=== PATIENT | female | born 1945 | race Caucasian/White ===

== ENCOUNTER → 2023-11-20 09:20 | Outpatient (REF) | payer MEDICARE, SELFPAY ==
[2023-11-20 13:01] LABS: % Basophils 0.9 % (0-2); % Eosinophils 2.3 % (0-6); % Immature Granulocytes 0.3 % (0-0.5); % Lymphocytes 25.8 % (20.5-51.1); % Monocytes 10.6 % (1.7-9.3); % Neutrophils 60.1 % (42.2-75.2); Absolute Basophils 0.1 10^3/uL (0-0.2); Absolute Eosinophils 0.2 10^3/uL (0-0.7); Absolute Lymphocytes 1.7 10^3/uL (1.2-3.4); Absolute Monocytes 0.7 10^3/uL (0.1-0.6); Absolute Neutrophils 3.9 10^3/uL (1.4-6.5); Hematocrit 40.8 % (37.0-47.0); Hemoglobin 14.1 g/dL (12.0-16.0); Mean Corp Hgb Conc. 34.6 g/dL (33.0-37.0); Mean Corpuscular Hgb 35.4 pg (27.0-31.0); Mean Corpuscular Volume 102.5 fL (81.0-99.0); Mean Platelet Volume 10.2 fL (7.4-10.4); Nucleated Red Blood Cells % 0 %; Platelet Count 235 10^3/uL (130-400); Red Blood Cell Count 3.98 10^6/uL (4.20-5.40); Red Cell Dist. Width 12.7 % (11.5-14.5); White Blood Cell Count 6.5 10^3/uL (4.8-10.8)
[2023-11-20 14:02] LABS: ALT (SGPT) 24 U/L (0-35); AST (SGOT) 37 U/L (14-36); Albumin 4.2 g/dl (3.5-5.0); Alkaline Phosphatase 71 U/L (38-126); Blood Urea Nitrogen 12 mg/dl (7-17); Calcium 9.1 mg/dl (8.4-10.2); Carbon Dioxide 27 mmol/L (22-30); Chloride 103 mmol/L (98-107); Glucose 121 mg/dl (70-99); HDL Cholesterol 94 mg/dl; LDL Cholesterol, Calculated 103 mg/dl; Potassium 4.3 mmol/L (3.5-5.1); Sodium 135 mmol/L (135-145); Total Bilirubin 0.7 mg/dl (0.2-1.3); Total Cholesterol 215 mg/dl (50-199); Total Protein 7.4 g/dl (6.3-8.2); Triglyceride 91 mg/dl (10-149); Very Low Density Lipoprotein 18 mg/dl (0-30); eGFR > 60.00
[2023-11-21 15:40] LABS: Folate 12.8 ng/ml (2.76-20); Vitamin B12 409 pg/ml (239-931)
[2023-11-22 09:26] LABS: Glycohemoglobin (HgbA1c) 5.7 % (4.0-5.6)
== END ==
LOC: HWLAB 09:20
PROVIDERS: ATTENDING PHYSICIAN Family Medicine
DX: M19.90 Unspecified osteoarthritis, unspecified site (principal); G47.9 Sleep disorder, unspecified; E78.00 Pure hypercholesterolemia, unspecified; I10 Essential (primary) hypertension; J84.9 Interstitial pulmonary disease, unspecified; F41.8 Other specified anxiety disorders; K21.9 Gastro-esophageal reflux disease without esophagitis; R73.01 Impaired fasting glucose; D53.9 Nutritional anemia, unspecified
CPT/HCPCS: 36415; 73130; 80053; 80061; 82607; 82746; 83036; 85025

== ENCOUNTER → 2023-11-28 11:35 | Outpatient (REF) | payer MEDICARE, SELFPAY ==
[2023-11-28 15:16] LABS: C-Reactive Protein < 5.00 mg/L (0.0-10.00)
[2023-11-28 16:02] LABS: Erythrocyte Sed Rate 14 mm/hour (0-20)
[2023-11-28 16:20] LABS: Folate 11.9 ng/ml (2.76-20); Vitamin B12 404 pg/ml (239-931)
[2023-11-30 15:52] LABS: Rheumatoid Agglutinin Less Than 10 IU (<10 IU)
[2023-11-30 18:41] LABS: ANA, IgG Reflex to HEp-2 None Detected (None Detected)
== END ==
LOC: HWLAB 11:35
PROVIDERS: ATTENDING PHYSICIAN Family Medicine
DX: M19.90 Unspecified osteoarthritis, unspecified site (principal); M19.049 Primary osteoarthritis, unspecified hand; D53.9 Nutritional anemia, unspecified
CPT/HCPCS: 36415; 82607; 82746; 85652; 86038; 86140; 86430

== ENCOUNTER 2023-12-26 11:51 | Emergency (ER) | payer MEDICARE, SELFPAY ==
[2023-12-26 11:53] VITALS: BP 133/83
--- NOTE | 2023-12-26 12:26 | ED.GENMED ---
History of Present Illness
General
Chief Complaint: Heart Rate Problem
Source: patient
Exam Limitations: none
Time Seen by Provider: 12/26/23 12:17
Travel History
Have you had any contact with someone who has COVID-19?: No
Do you have any symptoms of coronavirus? Fever > 100 degrees, chills, cough, shortness of breath, sore throat, loss of taste or smell, muscle aches, or headache?: No
History of Present Illness
History of Present Illness:
See MDM
Past History
Past History
ED Past Medical History: HTN, Hypercholesterolemia and Other (Interstitial Lung Disease)
Social History
Tobacco: Former smoker
Drug: None
Personal:
Living: with family
Phy Exam
Physical Exam
Physical Exam:
See MDM
Course
Orders/Labs/Results
Orders:
Orders
12/26/23 11:56
Electrocardiogram (*1) Urgent
Reason for Study: Chest Pain
EKG- Treatment ONCE
12/26/23 12:25
0.9% Sodium Chloride 1000 ml [Nss] 1,000 ml IV BOLUS
Diltiazem HCl [Cardizem] 20 mg IV NOW STA
12/26/23 12:29
Complete Blood Count/With Diff Urgent
Comprehensive Metabolic Panel Urgent
Magnesium Urgent
PTT Urgent
Prothrombin Time Urgent
TSH Reflex To Free T4 Urgent
Troponin I Urgent
12/26/23 13:08
EKG [Electrocardiogram (*1)] Urgent
Reason for Study: Palpitations
EKG- Treatment ONCE
12/26/23 13:56
Apixaban [Eliquis] 5 mg PO ONCE ONE
Metoprolol Xl [Toprol Xl] 25 mg PO NOW STA
Abnormal Lab Results
12/26/23
12:29
RBC 4.17 L 10^6/uL
(4.20-5.40)
MCV 99.8 H fL
(81.0-99.0)
MCH 35.5 H pg
(27.0-31.0)
Absolute Monos (auto) 0.9 H 10^3/uL
(0.1-0.6)
Monocytes % 11.4 H %
(1.7-9.3)
Sodium 134 L mmol/L
(135-145)
Glucose 110 H mg/dl
(70-99)
Troponin I 0.050 H* ng/ml
12/26/23 12:29
12/26/23 12:29
Vital Signs
Initial and Last Documented VS:
Initial Vital Signs
Temp Pulse Resp BP Pulse Ox
98.3 F 147 22 133/83 96
12/26/23 11:53 12/26/23 11:53 12/26/23 11:53 12/26/23 11:53 12/26/23 11:53
Last Documented Vital Signs
Temp Pulse Resp BP Pulse Ox
98.3 F 75 22 161/81 95
12/26/23 11:53 12/26/23 14:10 12/26/23 11:53 12/26/23 14:10 12/26/23 12:58
MDM/Problems Addressed
Differential Diagnosis Includes:
HPI and MDM Narrative:
78-year-old female presenting with several days of chest discomfort and palpitations. Patient states it kept her up overnight. She saw her PCP today and had an EKG showing A-fib with RVR. This is a new diagnosis for her. Given her elevated heart
rate and her current symptoms, she was sent in for evaluation. A-fib with RVR was confirmed. Patient denies prior history of cardiac disease. She states she has never seen a grinder chipper before. Will give dose of IV Cardizem and attempt to
chemically cardiovert. She is not a bedside electric cardioversion candidate given duration of symptoms without being on a blood thinner.
She denies recent trips or any leg swelling
Physical exam
General: Well appearing and non-toxic
HEENT: protecting airway
Neck: appears supple
CV: No evidence of cyanosis. Tachycardic and irregular
Resp: No accessory muscle use. Lungs clear
Abd: Non-distended
Extremities: No deformities. No leg edema
Neuro: alert
Psych: Normal affect
Skin: Intact
Problems Addressed including Acute and Chronic Conditions affecting care:
1. A-fib with RVR
Acuity: acute
Prognosis: unstable
Details: Patient given IV Cardizem and attempt to chemically cardiovert. Will give IV fluids and obtain basic blood
Updates
After 1 dose of IV Cardizem bolus, patient is rate related sinus rhythm now. All symptoms have resolved. She denies chest pain or shortness of breath. I did curbside cardiology. Will start Toprol XL and Eliquis. Patient was found to have an
elevated troponin. I do believe this to be rate related. Given that she has no chest pain or shortness of breath currently, doubt ACS
Differential Diagnosis (but not limited to): A-fib with RVR, hypothyroidism, ACS
Testing considered: D-dimer
Drug therapy (if applicable): OTC meds, please see d/c instruction regarding Rx drugs
Amount and/or Complexity of Data Reviewed
Clinical info obtained from: Patient
External data reviewed: N/A
Labs I independently reviewed (but not limited to): Mild elevation of troponin
Radiology: N/A
Pulse Ox: not hypoxic
EKG independently reviewed: A-fib with RVR, normal axis, no STEMI
Academic Physician: A-fib with RVR
Critical Care: The high probability of a clinically significant, sudden or life threatening deterioration of the cardiovascular system(s) required my full and direct attention, intervention and personal management. The aggregate critical care time
was 33 minutes. This time is in addition to time spent performing reported procedures but includes the following:
[x] Data Review and interpretation
[x] Patient assessment and monitoring of vital signs
[x] Documentation
[x] Medication orders and management
Risk of Complication:
Social Determinants of health: Good social support
Discussed with other providers: Cardiology
Escalation of Care includes Admit/Obs: After being observed in the Emergency Department, pt stable for discharge.
Occasional wrong word or 'sound a like' substitutions may have occurred due to the inherent limitations of voice recognition software. Read the chart carefully and recognize, using context, where substitutions have occurred.
*Critical Care Note
Total Time (30-74mins, 75-104mins- exclusive of procedures): 33 min
ED Attending Note
-
Portions of this chart may have been created with voice recognition software.� Occasional wrong word or��sound alike� substitutions may have occurred due to the inherent limitations of voice recognition software.
Discharge Plan
Departure
Patient Disposition: Home (Routine Discharge)
Date of Disposition: 12/26/23
Time of Disposition: 14:23
Patient with high blood pressure during this ER visit?: Yes
Discharge Problem:
New onset a-fib
Instructions: Atrial Fibrillation (DC), BLOOD PRESSURE
Prescriptions:
New
metoprolol succinate [Toprol XL] 25 mg tablet extended release 24 hr
25 mg PO DAILY Qty: 30 0RF
Eliquis 5 mg tablet
5 mg PO BID Qty: 60 0RF
No Action
atorvastatin [Lipitor] 40 mg Tablet
40 mg PO HS
loperamide 2 mg Tablet
2 mg PO Q4HPRN PRN (Reason: diarrhea)
Theragen Tablet
1 tab PO DAILY
omeprazole 40 mg Capsule,Delayed Release(Dr/Ec)
40 mg PO DAILY
mycophenolate mofetil 500 mg tablet
500 mg PO BID
lorazepam 0.5 mg Tablet
0.5 mg PO DAILYPRN PRN (Reason: anxiety)
losartan 25 mg Tablet
25 mg PO DAILY
hydrochlorothiazide 25 mg Tablet
25 mg PO DAILY
Tylenol PM Extra Strength 25-500 mg Tablet
1 tab PO HSPRN PRN (Reason: sleep)
escitalopram oxalate [Lexapro] 20 mg Tablet
20 mg PO DAILY
Referrals:
Yvon Saenz MD [Active] -
Trey Martinez MD [Family Provider] -
Activity Restrictions/Additional Instructions:
Please return for any worsening symptoms.
You may return at any time if you have further concerns.
Please follow up with your doctor at the first available appointment, preferably this week.
You were placed on the cardiac callback tracker. Someone from their office should call you in the next few days. If you do not hear from them in the next few days, please give them a call.
Thank you for choosing [facility].
Interventions
Interventions:
*Risk Screen - Suicide Last Done: 12/26/23 11:53
*General Assessment Last Done: 12/26/23 11:53
*Neglect/Abuse Screening Last Done: 12/26/23 11:53
ED- Fall Risk Assessment Last Done: 12/26/23 12:58
*ED COVID-19 Vaccine History Last Done: 12/26/23 12:58
*Nursing Disposition Last Done: 12/26/23 13:55
ED- Cardiac Assessment Last Done: 12/26/23 12:58
ED- Pulmonary Assessment Last Done: 12/26/23 12:58
Discharge Date and Time
Print Language: ZAMBIAN
[2023-12-26] MEDS: NSS 1000 IV (12:31)
[2023-12-26] MEDS: CARDIZEM 20 MG IV (12:32)
[2023-12-26 12:48] LABS: % Basophils 0.8 % (0-2); % Eosinophils 0.8 % (0-6); % Immature Granulocytes 0.2 % (0-0.5); % Monocytes 11.4 % (1.7-9.3); % Neutrophils 62.8 % (42.2-75.2); Absolute Basophils 0.1 10^3/uL (0-0.2); Absolute Eosinophils 0.1 10^3/uL (0-0.7); Absolute Monocytes 0.9 10^3/uL (0.1-0.6); Absolute Neutrophils 5.2 10^3/uL (1.4-6.5); Hematocrit 41.6 % (37.0-47.0); Hemoglobin 14.8 g/dL (12.0-16.0); Mean Corp Hgb Conc. 35.6 g/dL (33.0-37.0); Mean Corpuscular Hgb 35.5 pg (27.0-31.0); Mean Corpuscular Volume 99.8 fL (81.0-99.0); Mean Platelet Volume 9.8 fL (7.4-10.4); Nucleated Red Blood Cells % 0 %; Platelet Count 254 10^3/uL (130-400); Red Blood Cell Count 4.17 10^6/uL (4.20-5.40); Red Cell Dist. Width 12.8 % (11.5-14.5); White Blood Cell Count 8.3 10^3/uL (4.8-10.8)
[2023-12-26 12:58] LABS: APTT 28.9 Sec (23.4-35.0); INR 1.07; PT 13.7 Sec (11.4-14.6)
[2023-12-26 13:34] LABS: TSH Reflex To Free T4 3.09 uIU/ml (0.47-4.68)
[2023-12-26 13:40] LABS: ALT (SGPT) 23 U/L (0-35); AST (SGOT) 34 U/L (14-36); Albumin 4.3 g/dl (3.5-5.0); Alkaline Phosphatase 80 U/L (38-126); Blood Urea Nitrogen 16 mg/dl (7-17); Calcium 9.6 mg/dl (8.4-10.2); Carbon Dioxide 23 mmol/L (22-30); Chloride 104 mmol/L (98-107); Glucose 110 mg/dl (70-99); Magnesium 1.6 mg/dl (1.6-2.3); Potassium 4.2 mmol/L (3.5-5.1); Sodium 134 mmol/L (135-145); Total Bilirubin 0.6 mg/dl (0.2-1.3); Total Protein 7.5 g/dl (6.3-8.2); eGFR > 60.00
[2023-12-26] MEDS: TOPROL XL 25 MG PO (14:10)
[2023-12-26] MEDS: ELIQUIS 5 MG PO (14:10)
[2023-12-26 14:30] VITALS: BP 160/95
== END 2023-12-26 14:45 | disposition home or self-care (01) ==
LOC: EMR 11:51
PROVIDERS: EMERGENCY PHYSICIAN Student in an Organized Health Care Education/Training Program; FAMILY PHYSICIAN Family Medicine
DX: I48.91 Unspecified atrial fibrillation (principal); I10 Essential (primary) hypertension; Z87.891 Personal history of nicotine dependence
CPT/HCPCS: 99291; 96374; 96361; 80053; 83735; 84443; 84484; 85025; 85610; 85730; 93005

== ENCOUNTER → 2024-01-24 08:59 | Outpatient (REF) | payer MEDICARE, SELFPAY ==
[2024-01-24 13:03] LABS: NT-proBNP 223 pg/ml; Troponin I < 0.012 ng/ml
== END ==
LOC: HWRCS 08:59
PROVIDERS: ATTENDING PHYSICIAN Internal Medicine Cardiovascular Disease; FAMILY PHYSICIAN Family Medicine; REFERRING PHYSICIAN Internal Medicine Critical Care Medicine
DX: R07.89 Other chest pain (principal); I48.0 Paroxysmal atrial fibrillation; I10 Essential (primary) hypertension; E78.00 Pure hypercholesterolemia, unspecified; J84.9 Interstitial pulmonary disease, unspecified
CPT/HCPCS: 36415; 83880; 84484; 93306

== ENCOUNTER 2024-03-16 06:21 | Emergency (ER) | payer MEDICARE, SELFPAY ==
[2024-03-16] VITALS (14 sets, daily range): BP systolic 109–164; BP diastolic 67–109; BMI 29.3
--- NOTE | 2024-03-16 06:53 | ED.GENMED ---
History of Present Illness
General
Chief Complaint: Heart Rate Problem
Source: patient
Exam Limitations: none
Time Seen by Provider: 03/16/24 06:42
Nursing documentation reviewed up to this point in time: agreed with
History of Present Illness
History of Present Illness:
Patient diagnosed with new onset atrial fibrillation in October, and started on Eliquis and Toprol, presents to ED secondary to recurrent episodes of chest palpitations with shortness of breath, which woke her up from sleep this morning around 2 AM.
Patient also reports chest pressure. Denies dizziness or nausea. Denies diaphoresis. Denies recent illness. Denies recent change in medications or diet. Patient states she was at her baseline health when she went to sleep. Of note, patient has
only been taking Eliquis once daily in a.m, as she was not aware that she was supposed to take the medication twice daily.
Past History
Past History
ED Past Medical History: HTN, Hypercholesterolemia and Other (Interstitial Lung Disease)
Social History
Tobacco: Former smoker
Drug: None
Personal:
Living: with family
Review of Systems
Review of Systems
Allergies reviewed?: Yes
All Other Systems: ROS reviewed and negative except as documented in HPI and ROS
Constitutional: Reports no symptoms
Respiratory: Reports trouble breathing
Cardiac: Reports chest pain and palpitations
ABD/GI: Reports no symptoms
Musculoskeletal: Reports no symptoms
Skin: Reports no symptoms
Neurological: Reports no symptoms
Phy Exam
Physical Exam
Physical Exam:
Physical Exam
General: mild distress, not acutely ill. afebrile
Head: nc/at. eomi
Neck: supple. no meningeal signs.
Heart: irregularly irregular, tachycardic, no murmur. equal radial pulses.
Lungs: no acute respiratory distress. clear bilaterally
Abdomen: normal bowel sounds. not tender.
Neuro: alert and oriented. no focal neurological deficits
Skin: no rash
Psychiatric: well kept. interactive and cooperative
Extremities: no edema. no calf tenderness.
Course
Orders/Labs/Results
Orders:
Orders
03/16/24 06:29
ECG [Electrocardiogram (*1)] Urgent
Reason for Study: Tachycardia
Cardiology Consult: Unknown
03/16/24 06:30
EKG- Treatment ONCE
03/16/24 06:48
Diltiazem 125 mg/125 ml Nss [Cardizem] 125 mg in 125 ml .ROUTE .STK-MED
Diltiazem HCl [Cardizem] 25 mg .ROUTE .STK-MED ONE
03/16/24 06:51
0.9% Sodium Chloride 1000 ml [Nss] 1,000 ml IV BOLUS
Diltiazem HCl [Cardizem] 20 mg IV NOW STA
03/16/24 06:52
0.9% Sodium Chloride 500 ml [Nss] 500 ml IV BOLUS
03/16/24 07:00
Diltiazem 125 mg/125 ml Nss [Cardizem] 125 mg in 125 ml IV PER PROTOCOL
Initial dose in mg/hr, then titrate:: 5
Titrate to keep:: Heart rate 80-100 bpm
Titrate by mg/hr:: 5 mg/hr
Frequency of titrations (minutes):: 15
Maximum dose in mg/hr:: 15
03/16/24 07:06
Complete Blood Count/No Diff Urgent
Comprehensive Metabolic Panel Urgent
Free T4 Urgent
Comment: ADD ON
Magnesium Urgent
TSH Urgent
03/16/24 07:22
Metoprolol [Lopressor] 5 mg IV NOW STA
03/16/24 08:30
Apixaban [Eliquis] 5 mg PO BID
03/16/24 08:33
Add On- LAB Urgent
Tests Added?: Free T4
03/16/24 08:44
Electrocardiogram (*1) Urgent
Reason for Study: Atrial Fibrillation
EKG- Treatment ONCE
Abnormal Lab Results
03/16/24
07:06
MCV 100.9 H fL
(81.0-99.0)
MCH 35.9 H pg
(27.0-31.0)
Glucose 147 H mg/dl
(70-99)
AST 41 H U/L
(14-36)
TSH 7.67 H uIU/ml
(0.47-4.68)
03/16/24 07:06
03/16/24 07:06
Vital Signs
Initial and Last Documented VS:
Initial Vital Signs
Pulse Resp BP Pulse Ox
134 28 130/89 95
03/16/24 06:26 03/16/24 06:26 03/16/24 06:26 03/16/24 06:26
Last Documented Vital Signs
Pulse Resp BP Pulse Ox
61 17 144/68 94
03/16/24 09:45 03/16/24 09:45 03/16/24 09:45 03/16/24 08:45
MDM/Problems Addressed
MDM/Problems Addressed:
History, exam, along with EKG consistent with recurrent rapid atrial fibrillation. Patient started on IV fluids, along with Cardizem bolus and infusion. However, patient's heart rate remains persistently elevated. As such, patient given 5 mg
Lopressor IV as well.
During observation afterwards, patient noted to convert spontaneously to normal sinus rhythm, confirmed by repeat EKG. Patient also reports complete resolution of her presenting symptoms.
Discussed with on-call cardiology, Dr. Benoit. Agrees with plan to discharge patient home with following recommendations: Start taking Eliquis twice daily and increase Toprol-XL to 50 mg daily, starting tomorrow.
Patient is afebrile, hemodynamically stable, and appears comfortable, at time of discharge, to the care of her spouse.
Critical care statement: A total of 40 minutes of critical care time was provided for this patient. This includes management of unstable vital signs, evaluation of the patient at bedside, reviewing the patient's pertinent medical records, discussion
with consultants, review of old EKGs and review of pertinent medical records. This time with separate from time utilized to perform the aforementioned documented procedures
*Critical Care Note
Total Time (30-74mins, 75-104mins- exclusive of procedures): Not Applicable
ED Attending Note
-
Portions of this chart may have been created with voice recognition software.� Occasional wrong word or��sound alike� substitutions may have occurred due to the inherent limitations of voice recognition software.
Discharge Plan
Departure
Patient Disposition: Home (Routine Discharge)
Date of Disposition: 03/16/24
Time of Disposition: 09:37
Patient with high blood pressure during this ER visit?: Yes
Condition: Good
Discharge Problem:
Atrial fibrillation, rapid
Instructions: Atrial Fibrillation (DC)
Prescriptions:
No Action
atorvastatin [Lipitor] 40 mg Tablet
40 mg PO HS
loperamide 2 mg Tablet
2 mg PO Q4HPRN PRN (Reason: diarrhea)
Theragen Tablet
1 tab PO DAILY
mycophenolate mofetil 500 mg tablet
500 mg PO BID
losartan 25 mg Tablet
25 mg PO DAILY
hydrochlorothiazide 25 mg Tablet
25 mg PO DAILY
diphenhydramine-acetaminophen [Tylenol PM Extra Strength] 25-500 mg Tablet
1 tab PO HSPRN PRN (Reason: sleep)
escitalopram oxalate [Lexapro] 20 mg Tablet
20 mg PO DAILY
metoprolol succinate [Toprol XL] 25 mg tablet extended release 24 hr
25 mg PO DAILY Qty: 30 0RF
Eliquis 5 mg tablet
5 mg PO DAILY
Referrals:
Trey Martinez MD [Family Provider] -
Chadd Benoit MD [Active] -
Activity Restrictions/Additional Instructions:
As discussed, please follow-up with your director inbound sales for further evaluation and treatment. In the meantime, please start taking Eliquis twice daily. In addition, increase Toprol XL to 50 mg daily, starting tomorrow.
Interventions
Interventions:
*Risk Screen - Suicide Last Done: 03/16/24 06:42
*General Assessment Last Done: 03/16/24 06:42
*Neglect/Abuse Screening Last Done: 03/16/24 06:42
ED- Fall Risk Assessment Last Done: 03/16/24 06:42
*ED COVID-19 Vaccine History Last Done: 03/16/24 06:42
*Nursing Disposition Last Done: 03/16/24 10:11
ED- Cardiac Assessment Last Done: 03/16/24 06:46
ED- Pulmonary Assessment Last Done: 03/16/24 06:46
Discharge Date and Time
Discharge Date/Time: 03/16/24 10:10
Print Language: TURKISH
[2024-03-16] MEDS: NSS 500 IV (06:57)
[2024-03-16] MEDS: CARDIZEM 20 MG IV (06:59)
[2024-03-16] MEDS: CARDIZEM 125 IV (07:04)
[2024-03-16 07:19] LABS: Hematocrit 43.8 % (37.0-47.0); Hemoglobin 15.6 g/dL (12.0-16.0); Mean Corp Hgb Conc. 35.6 g/dL (33.0-37.0); Mean Corpuscular Hgb 35.9 pg (27.0-31.0); Mean Corpuscular Volume 100.9 fL (81.0-99.0); Mean Platelet Volume 9.4 fL (7.4-10.4); Platelet Count 248 10^3/uL (130-400); Red Blood Cell Count 4.34 10^6/uL (4.20-5.40); Red Cell Dist. Width 12.1 % (11.5-14.5); White Blood Cell Count 5.8 10^3/uL (4.8-10.8)
[2024-03-16] MEDS: LOPRESSOR 5 MG IV (07:36)
[2024-03-16 07:40] LABS: ALT (SGPT) 24 U/L (0-35); AST (SGOT) 41 U/L (14-36); Albumin 4.3 g/dl (3.5-5.0); Alkaline Phosphatase 79 U/L (38-126); Blood Urea Nitrogen 16 mg/dl (7-17); Calcium 9.7 mg/dl (8.4-10.2); Carbon Dioxide 26 mmol/L (22-30); Chloride 106 mmol/L (98-107); Estimated Creatinine Clearance 56 ml/min; Glucose 147 mg/dl (70-99); Magnesium 1.6 mg/dl (1.6-2.3); Potassium 4.3 mmol/L (3.5-5.1); Sodium 140 mmol/L (135-145); Total Bilirubin 0.6 mg/dl (0.2-1.3); Total Protein 7.3 g/dl (6.3-8.2); eGFR > 60.00
[2024-03-16 08:10] LABS: TSH 7.67 uIU/ml (0.47-4.68)
[2024-03-16] MEDS: ELIQUIS 5 MG PO (08:42)
[2024-03-16 10:48] LABS: Free T4 0.88 ng/dl (0.78-2.19)
== END 2024-03-16 10:10 | disposition home or self-care (01) ==
LOC: EMR 06:21
PROVIDERS: EMERGENCY PHYSICIAN Emergency Medicine; FAMILY PHYSICIAN Family Medicine
DX: R07.89 Other chest pain (principal); R06.02 Shortness of breath; I48.91 Unspecified atrial fibrillation; I10 Essential (primary) hypertension; E78.00 Pure hypercholesterolemia, unspecified; J84.9 Interstitial pulmonary disease, unspecified; Z87.891 Personal history of nicotine dependence; Z79.01 Long term (current) use of anticoagulants; Z88.1 Allergy status to other antibiotic agents
CPT/HCPCS: 99291; 96365; 96366; 96375; 80053; 83735; 84439; 84443; 85027; 93005

== ENCOUNTER → 2024-10-29 08:51 | Outpatient (REF) | payer MEDICARE, SELFPAY | LOC: HWRAD 08:51 | PROVIDERS: ATTENDING PHYSICIAN Internal Medicine Critical Care Medicine; FAMILY PHYSICIAN Family Medicine | DX: J84.9 Interstitial pulmonary disease, unspecified (principal); R04.2 Hemoptysis | CPT/HCPCS: 71250 ==

== ENCOUNTER → 2024-11-21 06:59 | Outpatient (REF) | payer MEDICARE, SELFPAY ==
[2024-11-21 09:59] LABS: % Basophils 1.5 % (0-2); % Eosinophils 1.8 % (0-6); % Immature Granulocytes 0.4 % (0-0.5); % Lymphocytes 44.3 % (20.5-51.1); % Monocytes 9.6 % (1.7-9.3); % Neutrophils 42.4 % (42.2-75.2); Absolute Basophils 0.1 10^3/uL (0-0.2); Absolute Eosinophils 0.1 10^3/uL (0-0.7); Absolute Lymphocytes 2.4 10^3/uL (1.2-3.4); Absolute Monocytes 0.5 10^3/uL (0.1-0.6); Absolute Neutrophils 2.3 10^3/uL (1.4-6.5); Hematocrit 38.2 % (37.0-47.0); Hemoglobin 13.6 g/dL (12.0-16.0); Mean Corp Hgb Conc. 35.6 g/dL (33.0-37.0); Mean Corpuscular Hgb 35.9 pg (27.0-31.0); Mean Corpuscular Volume 100.8 fL (81.0-99.0); Mean Platelet Volume 9.7 fL (7.4-10.4); Nucleated Red Blood Cells % 0 %; Platelet Count 271 10^3/uL (130-400); Red Blood Cell Count 3.79 10^6/uL (4.20-5.40); Red Cell Dist. Width 12.1 % (11.5-14.5); White Blood Cell Count 5.4 10^3/uL (4.8-10.8)
[2024-11-21 10:19] LABS: ALT (SGPT) 20 U/L (0-35); AST (SGOT) 30 U/L (14-36); Albumin 4.1 g/dl (3.5-5.0); Alkaline Phosphatase 73 U/L (38-126); Blood Urea Nitrogen 14 mg/dl (7-17); Calcium 9.3 mg/dl (8.4-10.2); Carbon Dioxide 27 mmol/L (22-30); Chloride 98 mmol/L (98-107); Glucose 103 mg/dl (70-99); HDL Cholesterol 91 mg/dl; LDL Cholesterol, Calculated 95 mg/dl; Potassium 4.4 mmol/L (3.5-5.1); Sodium 134 mmol/L (135-145); Total Bilirubin 0.8 mg/dl (0.2-1.3); Total Cholesterol 206 mg/dl (50-199); Triglyceride 104 mg/dl (10-149); Very Low Density Lipoprotein 20 mg/dl (0-30); eGFR > 60.00
[2024-11-21 10:53] LABS: Glycohemoglobin (HgbA1c) 5.5 % (4.0-5.6)
== END ==
LOC: HWLAB 06:59
PROVIDERS: ATTENDING PHYSICIAN Family Medicine
DX: E78.00 Pure hypercholesterolemia, unspecified (principal); I10 Essential (primary) hypertension; K21.9 Gastro-esophageal reflux disease without esophagitis; F41.8 Other specified anxiety disorders; R73.03 Prediabetes
CPT/HCPCS: 36415; 80053; 80061; 83036; 85025

== ENCOUNTER 2025-04-14 10:58 | Emergency (ER) | payer MEDICARE, SELFPAY ==
[2025-04-14] VITALS (7 sets, daily range): BP systolic 161–213; BP diastolic 70–102; BMI 28.1
--- NOTE | 2025-04-14 12:47 | ED.GENMED ---
History of Present Illness
General
Chief Complaint: Fall
Source: patient and spouse
Exam Limitations: none
Time Seen by Provider: 04/14/25 12:36
Nursing documentation reviewed up to this point in time: agreed with
History of Present Illness
History of Present Illness:
80-year-old female with a past medical history of hypertension, hyperlipidemia, atrial fibrillation on Eliquis (sees Dr. Benoit for cardiology care) who presents to the ER accompanied by her for evaluation of back pain. Patient reports
that she had a fall on Monday afternoon: she was holding a laundry basket and tripped on her dog and she fell backwards. She says that she struck her low back on the ledge of her fireplace. She did not strike her head or lose consciousness. She
immediately had pain in her low back where she struck the fireplace but she says it had been manageable but has progressively worsened over the past few days. This morning pain quite severe which prompted ER visit. She reports pain in the left low
back worse with any movement. She has been taking Tylenol but it has not controlled it. She denies any associated radicular symptoms down the legs. She denies any numbness or weakness in the legs. She denies any bowel or bladder incontinence.
Denies saddle anesthesia. She denies any other acute complaints or injuries from the fall including specifically denying any hip pain, headache, neck pain. She is on Eliquis for A-fib, last dose was last night.
Past History
Past History
ED Past Medical History: HTN, Hypercholesterolemia and Other (Interstitial Lung Disease)
Social History
Tobacco: Former smoker
Drug: None
Personal:
Living: with family
Review of Systems
Review of Systems
All Other Systems: ROS reviewed and negative except as documented in HPI and ROS
Respiratory: Denies trouble breathing
Cardiac: Denies chest pain
ABD/GI: Denies abdominal pain
Musculoskeletal: Reports back pain; Denies joint pain or neck pain
Neurological: Denies headache, weakness or numbness
Phy Exam
Physical Exam
Physical Exam:
General: Awake, alert, sitting straight up in bed appears uncomfortable
Head: Normocephalic, atraumatic
Eyes: Conjunctiva normal
Throat: Airway intact, handling secretions
Neck: Trachea midline, no cervical spine tenderness
Lungs: Clear to auscultation bilaterally, no wheezing, rales, rhonchi
Heart: Regular rate and rhythm, faint systolic murmur
Abd: Soft, non distended, nontender
Back: Patient has marked tenderness to palpation left mid to lower back�most markedly tender at the level of L1-L2; she has no midline thoracic or lumbar tenderness; she has no bruising, no crepitus
Neuro: Cranial nerves grossly intact, speech fluid; motor and sensory intact distally in the lower extremities bilaterally
Skin: No rash or bruising in the back noted, no abrasions noted
Extremities: No edema in extremities, warm and well-perfused
Scores
Heart Failure Risk
Heart Failure Risk Score: Not Applicable
Heart Score for Chest Pain Patients
STEMI patient?: Not applicable
Withdrawal Assessment of Alcohol
Withdrawal Assessment Completed?: Not applicable
Course
Orders/Labs/Results
Orders:
Orders
04/14/25 12:46
Acetaminophen 1000MG/100Ml [Ofirmev] 1,000 mg in 100 ml IV ONCE
Acetaminophen IV Indication:: ED Narcotic Naive Pt-ONCE
Morphine Sulfate 4 mg IV NOW STA
04/14/25 12:51
CT Chest/abd/pel W Iv Cont Urgent
Comment:
Reason For Exam: left back/flank pain s/p fall
04/14/25 13:04
Complete Blood Count/With Diff Urgent
Comprehensive Metabolic Panel Urgent
PTT Urgent
Prothrombin Time Urgent
04/14/25 13:16
Iohexol [Omnipaque] 50 ml .ROUTE .[facility]-MED ONE
04/14/25 13:18
Iohexol [Omnipaque] See Protocol PO NOW STA
Abnormal Lab Results
04/14/25
13:04
RBC 3.88 L 10^6/uL
(4.20-5.40)
MCV 104.1 H fL
(81.0-99.0)
MCH 35.1 H pg
(27.0-31.0)
Absolute Monos (auto) 0.9 H 10^3/uL
(0.1-0.6)
Lymphocytes % 18.9 L %
(20.5-51.1)
Monocytes % 13.2 H %
(1.7-9.3)
Glucose 136 H mg/dl
(70-99)
04/14/25 13:04
04/14/25 13:04
Vital Signs
Initial and Last Documented VS:
Initial Vital Signs
Temp Pulse Resp BP Pulse Ox
36.4 C 83 18 161/76 95
04/14/25 11:14 04/14/25 11:14 04/14/25 11:14 04/14/25 11:14 04/14/25 11:14
Last Documented Vital Signs
Temp Pulse Resp BP Pulse Ox
36.4 C 63 16 213/95 95
04/14/25 11:14 04/14/25 16:00 04/14/25 16:00 04/14/25 16:00 04/14/25 16:00
MDM/Problems Addressed
Differential Diagnosis Includes:
Retroperitoneal/flank hematoma, vertebral fracture, rib fractures, muscle strain/back spasms
MDM/Problems Addressed:
80-year-old female who is on Eliquis for A-fib presents for evaluation of worsening low back pain after a fall with direct strike to her back. Pain is mainly in the low back on the left side. She has no radicular symptoms, no red flag symptoms.
Hypertensive but otherwise normal vitals. Physical exam as above. Will plan to treat symptomatically. Will send basic labs and check CT of the chest/abdomen/pelvis to rule out rib fracture or significant flank hematoma given that she is on
anticoagulation. Monitor very closely reassess after the above.
Labs reviewed: CBC and CMP no clinically significant abnormalities. CT shows no signs of rib fractures, no significant flank hematoma or other acute posttraumatic pathology. At this point clinical picture most consistent with flank contusion
versus muscle strain/spasms. She feels her pain is better controlled here. Plan for discharge with pain control, recommended gentle stretching, alternating ice and heat. She will follow-up with her primary doctor. She feels very comfortable with
this plan. All questions answered.
Chronic conditions affecting care:
A-fib on Eliquis complicates fall
Acute Exacerbation and/or Progression of Chronic Illness:
Acutely hypertensive likely pain related�treat pain but no emergent antihypertensives indicated for now
Acute Exacerbation and/or Progression of Chronic Illness: HTN
*Radiology
Radiology exam reviewed: radiology read reviewed
*Pulse Oximetry
SaO2: 95
Oxygen Mode of Delivery: Room air
Patient hypoxic: no (95%)
*Critical Care Note
Total Time (30-74mins, 75-104mins- exclusive of procedures): Not Applicable
Data Reviewed
Source: patient and spouse
ED Attending Note
-
Portions of this chart may have been created with voice recognition software.� Occasional wrong word or��sound alike� substitutions may have occurred due to the inherent limitations of voice recognition software.
Discharge Plan
Departure
Patient Disposition: Home (Routine Discharge)
Date of Disposition: 04/14/25
Time of Disposition: 16:56
Patient with high blood pressure during this ER visit?: Yes
Discharge Problem:
Low back pain
Instructions: Low back pain - ED (DC)
Prescriptions:
New
oxycodone 5 mg tablet
5 mg PO TID PRN (Reason: Pain) Qty: 20 0RF
lidocaine 5 % adhesive patch,medicated
1 patch topical DAILY Qty: 30 0RF
No Action
atorvastatin [Lipitor] 40 mg Tablet
40 mg PO HS
loperamide 2 mg Tablet
2 mg PO Q4HPRN PRN (Reason: diarrhea)
Theragen Tablet
1 tab PO DAILY
mycophenolate mofetil 500 mg tablet
500 mg PO BID
losartan 25 mg Tablet
25 mg PO DAILY
hydrochlorothiazide 25 mg Tablet
25 mg PO DAILY
diphenhydramine-acetaminophen [Tylenol PM Extra Strength] 25-500 mg Tablet
1 tab PO HSPRN PRN (Reason: sleep)
escitalopram oxalate [Lexapro] 20 mg Tablet
20 mg PO DAILY
metoprolol succinate [Toprol XL] 25 mg tablet extended release 24 hr
25 mg PO DAILY Qty: 30 0RF
Eliquis 5 mg tablet
5 mg PO DAILY
Referrals:
Jose Olivo MD [Family Provider, Family Practice] - Call in 1-3 days for appt
Activity Restrictions/Additional Instructions:
Thank you for visiting the Emergency Department at [facility].
1. Please schedule a follow up appointment as directed. Call first thing tomorrow morning to make an appointment.
2. If indicated, please take your medications as instructed and indicated on discharge paperwork.
3. If any of your symptoms do not improve, or persist, or become more severe within 6-12 hours, please return to the emergency department for further care.
4. Please return to the emergency department if you develop a headache, neck pain/stiffness, fever greater than 100.4F, chest pain, shortness of breath, persistent nausea, vomiting, slurred speech, difficulty walking, numbness/tingling, weakness,
signs of infection or any other symptoms that are worrisome to you.
Please call [phone] if you have any questions.
Interventions
Interventions:
*Risk Screen - Suicide Last Done: 04/14/25 11:14
*General Assessment Last Done: 04/14/25 12:56
*Neglect/Abuse Screening Last Done: 04/14/25 11:14
*ED- Fall Risk Assessment Last Done: 04/14/25 12:56
*ED COVID-19 Vaccine History Last Done: 04/14/25 12:56
ED-Musculoskeletal Assessment Last Done: 04/14/25 13:11
ED- Neurological Assessment Last Done: 04/14/25 13:11
ED-Skin Assessment Last Done: 04/14/25 13:11
Discharge Date and Time
Print Language: UKRAINIAN
[2025-04-14] MEDS: MORPHINE SULFATE 4 MG IV (13:05)
[2025-04-14] MEDS: OFIRMEV 100 IV (13:05)
[2025-04-14] MEDS: OMNIPAQUE 50 ML PO (13:19)
[2025-04-14 13:24] LABS: Hematocrit 40.4 % (37.0-47.0); Hemoglobin 13.6 g/dL (12.0-16.0); Mean Corp Hgb Conc. 33.7 g/dL (33.0-37.0); Mean Corpuscular Volume 104.1 fL (81.0-99.0); Nucleated Red Blood Cells % 0 %; Platelet Count 191 10^3/uL (130-400); Red Cell Dist. Width 13.1 % (11.5-14.5)
[2025-04-14 13:33] LABS: INR 0.99; PT 13.4 Sec (11.4-14.6)
[2025-04-14 13:34] LABS: APTT 27.4 Sec (23.4-35.0)
[2025-04-14 13:41] LABS: ALT (SGPT) 15 U/L (0-35); AST (SGOT) 24 U/L (14-36); Albumin 4.0 g/dl (3.5-5.0); Alkaline Phosphatase 66 U/L (38-126); Blood Urea Nitrogen 10 mg/dl (7-17); Calcium 9.3 mg/dl (8.4-10.2); Carbon Dioxide 27 mmol/L (22-30); Chloride 103 mmol/L (98-107); Estimated Creatinine Clearance 61 ml/min; Glucose 136 mg/dl (70-99); Potassium 4.2 mmol/L (3.5-5.1); Sodium 136 mmol/L (135-145); Total Protein 7.0 g/dl (6.3-8.2); eGFR > 60.00
--- NOTE | 2025-04-14 16:40 | EDRN ---
Pt's BP has been high throughout her stay. Pt was asked about BP medication and pt stated she is on BP meds but did not take them today.
[2025-04-14] MEDS: ROXICODONE 5 MG PO (17:16)
== END 2025-04-14 17:32 | disposition home or self-care (01) ==
LOC: EMR 10:58
PROVIDERS: EMERGENCY PHYSICIAN Emergency Medicine; FAMILY PHYSICIAN Family Medicine
DX: M54.50 Low back pain, unspecified (principal); I48.91 Unspecified atrial fibrillation; I10 Essential (primary) hypertension; E78.00 Pure hypercholesterolemia, unspecified; J84.9 Interstitial pulmonary disease, unspecified; Z79.01 Long term (current) use of anticoagulants; Z87.891 Personal history of nicotine dependence; W01.198A Fall on same level from slipping, tripping and stumbling with subsequent striking against other object, initial encounter; Y92.009 Unspecified place in unspecified non-institutional (private) residence as the place of occurrence of the external cause
CPT/HCPCS: 99284; 96374; 96375; 71260; 74177; 80053; 85025; 85610; 85730; Q9967